=== PATIENT | male | born 1960 | race Caucasian/White ===

== ENCOUNTER → 2022-05-16 | Day surgery (SDC) | payer BC ==
[~2022-05-16] MED LIST: ASPIR-LOW81 MG PO; ASPIRIN EC81 MG PO; ELIQUIS 5 MG TAB5 MG PO; ELIQUIS5 MG PO; ESBRIET267 MG PO; LASIX TAB 20 MG20 MG PO; LASIX20 MG PO; LIPITOR40 MG PO; LOPRESSOR 25 MG25 MG PO; MULTAQ400 MG PO; PREDNISONE10 MG PO; VENTOLIN INH; ZOLOFT25 MG PO
== END | disposition home or self-care (01) ==
LOC: OR 06:40
DX: Z12.11 Encounter for screening for malignant neoplasm of colon (principal); D12.2 Benign neoplasm of ascending colon; D12.3 Benign neoplasm of transverse colon; D12.4 Benign neoplasm of descending colon; D12.8 Benign neoplasm of rectum; K57.30 Diverticulosis of large intestine without perforation or abscess without bleeding; K64.1 Second degree hemorrhoids; D68.9 Coagulation defect, unspecified; J96.11 Chronic respiratory failure with hypoxia; J96.12 Chronic respiratory failure with hypercapnia; E66.01 Morbid (severe) obesity due to excess calories; Z79.01 Long term (current) use of anticoagulants; Z79.82 Long term (current) use of aspirin; Z68.38 Body mass index [BMI] 38.0-38.9, adult
CPT/HCPCS: 93005; J2704; J7040